=== PATIENT | male | born 1945 | race Caucasian/White ===

== ENCOUNTER 2017-06-18 08:44 | Emergency (ER) | payer MEDICARE ==
[2017-06-18 08:50] VITALS: BP 175/108
[2017-06-18] MEDS ORDERED: IPRATRPIUM/ALBUTEROL 0.5/2.5MG 3 ML NEBU. NEB ONE (09:15)
[2017-06-18] MEDS ORDERED: IV NORMAL SALINE 1,000ML 1,000 ML IV ONE (09:15)
--- NOTE | 2017-06-18 09:31 | RAD ---
EXAM: Chest one view. HISTORY: Cough, weakness. COMPARISON: None. FINDINGS: A frontal view of the chest is obtained. There are no confluent infiltrates. There is no pneumothorax or pleural effusion. The heart is not enlarged. There are atherosclerotic calcifications of the aorta. IMPRESSION: 1. No confluent infiltrates.
[2017-06-18 09:37] LABS: BASO % 0 % (0-3); EOS % 0 % (0-3); HEMATOCRIT 42.3 % (39.0-53.0); HEMOGLOBIN 14.7 g/dL (13.0-17.5); LYMPH # 0.6 x10^3/uL (1.0-4.8); LYMPH % 7 % (24-48); MEAN CORPUSCULAR HEMOGLOBIN 33 pg (25-35); MEAN CORPUSCULAR HGB CONC 35 g/dL (31-37); MEAN CORPUSCULAR VOLUME 96 fL (79-100); MONO # 0.6 x10^3/uL (0.0-1.1); MONO % 8 % (0-9); NEUT # 6.9 x10^3uL (1.8-7.7); NEUT % 84 % (31-73); PLATELET COUNT 175 x10^3/uL (140-400); RED CELL DISTRIBUTION WIDTH 13.1 % (11.5-14.5); WHITE BLOOD COUNT 8.2 x10^3/uL (4.0-11.0)
[2017-06-18 09:47] LABS: CALCIUM 8.9 mg/dL (8.5-10.1); GFR 73.7; MAGNESIUM 1.9 mg/dL (1.8-2.4); POTASSIUM 3.4 mmol/L (3.5-5.1)
[2017-06-18 09:55] LABS: INFLUENZA A PATIENT NEGATIVE (NEGATIVE); INFLUENZA B PATIENT NEGATIVE (NEGATIVE)
[2017-06-18] MEDS ORDERED: BUDE0.5A3 NEB (10:07)
[2017-06-18] MEDS ORDERED: ALBU8.5H8 INH (10:07)
[2017-06-18] MEDS ORDERED: PRED-220 PO (10:07)
--- NOTE | 2017-06-18 10:07 | PHYS DOC ---
Past History Past Medical History: Diabetes, HIV, Hypertension Past Surgical History: No Surgical History Additional Smoking Information: "When I was young" Alcohol Use: None Drug Use: None Adult General Chief Complaint Chief Complaint: FLU SYMPTOM HPI HPI Patient is a 71 year old F who presents with fever and cough over the past 2-3 days. He also describes nasal congestion and generalized body aches. He feels that his symptoms are mildly worse with activity and improved with relative rest. He has no other associated symptoms at this time. He has no other exacerbating or relieving factors. He does have a history of HIV and is currently on medications. His last viral count was 0 and has not had any AIDS associated illnesses. Review of Systems Review of Systems Constitutional: neg except history of present illness Eyes: Denies change in visual acuity, redness, or eye pain [] HENT: Negative except history of present illness Respiratory: Negative except history of present illness Cardiovascular: No additional information not addressed in HPI [] GI: Denies abdominal pain, nausea, vomiting, bloody stools or diarrhea [] : Denies dysuria or hematuria [] Musculoskeletal: Denies back pain or joint pain [] Integument: Denies rash or skin lesions [] Neurologic: Denies headache, focal weakness or sensory changes [] Endocrine: Denies polyuria or polydipsia [] All other systems were reviewed and found to be within normal limits, except as documented in this note. Family History Family History No pertinent family medical history was reported Current Medications Current Medications Current Medications Medications (Trade) Dose Ordered Sig/Edith Start Time Stop Time Status Last Admin Dose Admin Albuterol/ Ipratropium (Duoneb) 3 ml 1X ONCE 06/18/17 09:15 06/18/17 09:38 DC 06/18/17 09:34 3 ML Sodium Chloride 1,000 ml @ 1,000 mls/hr 1X ONCE 06/18/17 09:15 06/18/17 10:14 06/18/17 09:35 1,000 MLS/HR Allergies Allergies Allergies Coded Allergies Type Severity Reaction Last Updated Verified Penicillins Allergy Unknown 06/18/17 Yes Physical Exam Physical Exam Constitutional: Well developed, well nourished, no acute distress, non-toxic appearance. [] HENT: Normocephalic, atraumatic, mild nasal mucosa erythema Eyes: EOMI, conjunctiva normal, no discharge. [] Neck: Normal range of motion, no tenderness, supple, no stridor. [] Cardiovascular:Heart rate regular rhythm, Lungs & Thorax: Diminished breath sounds bilaterally with mild wheezing noted Abdomen: Bowel sounds normal, soft, no tenderness, no masses, no pulsatile masses. [] Skin: Warm, dry, no erythema, no rash. [] Extremities: No tenderness, no cyanosis, no clubbing, ROM intact, no edema. [] Neurologic: Alert and oriented X 3, normal motor function, normal sensory function, no focal deficits noted. [] Psychologic: Affect normal, judgement normal, mood normal. [] Current Patient Data Vital Signs Vital Signs Date Time Temp Pulse Resp B/P (MAP) Pulse Ox O2 Delivery O2 Flow Rate FiO2 06/18/17 08:50 99.0 102 20 93 Room Air Lab Results Laboratory Tests Test 06/18/17 09:10 06/18/17 09:15 06/18/17 09:17 White Blood Count 8.2 x10^3/uL (4.0-11.0) Red Blood Count 4.40 x10^6/uL (4.30-5.70) Hemoglobin 14.7 g/dL (13.0-17.5) Hematocrit 42.3 % (39.0-53.0) Mean Corpuscular Volume 96 fL (79-100) Mean Corpuscular Hemoglobin 33 pg (25-35) Mean Corpuscular Hemoglobin Concent 35 g/dL (31-37) Red Cell Distribution Width 13.1 % (11.5-14.5) Platelet Count 175 x10^3/uL (140-400) Neutrophils (%) (Auto) 84 % (31-73) H Lymphocytes (%) (Auto) 7 % (24-48) L Monocytes (%) (Auto) 8 % (0-9) Eosinophils (%) (Auto) 0 % (0-3) Basophils (%) (Auto) 0 % (0-3) Neutrophils # (Auto) 6.9 x10^3uL (1.8-7.7) Lymphocytes # (Auto) 0.6 x10^3/uL (1.0-4.8) L Monocytes # (Auto) 0.6 x10^3/uL (0.0-1.1) Eosinophils # (Auto) 0.0 x10^3/uL (0.0-0.7) Basophils # (Auto) 0.0 x10^3/uL (0.0-0.2) Sodium Level 136 mmol/L (136-145) Potassium Level 3.4 mmol/L (3.5-5.1) L Chloride Level 98 mmol/L (98-107) Carbon Dioxide Level 27 mmol/L (21-32) Anion Gap 11 (6-14) Blood Urea Nitrogen 12 mg/dL (8-26) Creatinine 1.0 mg/dL (0.7-1.3) Estimated GFR (Cockcroft-Gault) 73.7 Glucose Level 215 mg/dL (70-99) H Calcium Level 8.9 mg/dL (8.5-10.1) Magnesium Level 1.9 mg/dL (1.8-2.4) Influenza Type A (Rapid) Negative (NEGATIVE) Influenza Type B (Rapid) Negative (NEGATIVE) Glucose (Fingerstick) 197 mg/dL (70-99) H EKG EKG [] Radiology/Procedures Radiology/Procedures Chest x-ray - no acute disease noted Course & Med Decision Making Course & Med Decision Making Pertinent Labs and Imaging studies reviewed. (See chart for details) [] Dragon Disclaimer Dragon Disclaimer This electronic medical record was generated, in whole or in part, using a voice recognition dictation system. Departure Departure: Impression: Primary Impression: Viral bronchitis Disposition: 01 HOME, SELF-CARE Condition: STABLE Referrals: NON,STAFF (PCP) Patient Instructions: Acute Bronchitis Additional Instructions: Harvey was seen in the emergency department for cough and congestion. No emergency medical condition was found on history or physical exam. He did have normal chest x-ray and normal labs. His symptoms are most consistent with a viral bronchitis. He is given a prescription for oral steroids, inhaled steroids and albuterol. He was encouraged use nasal saline rinses regularly. He is advised follow-up with his primary care doctor in the next 3-5 days for further management. He was also advised to return to the emergency room if he develops new or worsening symptoms. Scripts Budesonide (PULMICORT) 0.5 Mg/2 Ml Ampul.neb 1 VIAL NEB BID for 14 Days, #60 VIAL 0 Refills Prov: OCTAVIO ALTAMIRANO MD 2/17/18 Prednisone (PREDNISONE) 10 Mg Tablet 10 MG PO DAILY for 3 Days, #3 TAB Prov: OCTAVIO ALTAMIRANO MD 06/18/17 Albuterol Sulfate (PROAIR HFA INHALER) 8.5 Gm Hfa.aer.ad 1 PUFF INH PRN Q6HRS Y for SHORTNESS OF BREATH for 7 Days, INHALER 0 Refills Prov: OCTAVIO ALTAMIRANO MD 06/18/17 OCTAVIO ALTAMIRANO MD Jun 18, 2017 10:07
[2017-06-18] MEDS ORDERED: methylPREDNISolone SOD SUCC PF 40 MG/ML VIAL. IV ONE (10:30)
== END 2017-06-18 10:34 | disposition home or self-care (01) ==
LOC: ER 08:44
DX: J20.8 Acute bronchitis due to other specified organisms (principal); E11.9 Type 2 diabetes mellitus without complications; I10 Essential (primary) hypertension; Z88.0 Allergy status to penicillin
CPT/HCPCS: 36415; 71045; 80048; 82947; 83735; 85025; 87804; 94640; 96361; 96374; 99285; J2920; J7620; J7030

== ENCOUNTER 2017-08-04 09:55 | Emergency (ER) | payer MEDICARE ==
[~2017-08-04] VITALS: Ht 175.3 cm; Wt 104.3 kg
[~2017-08-04 09:55] MED LIST: ALBU8.5H8 INH; BUDE0.5A3 NEB; PRED-220 PO
[2017-08-04] MEDS ORDERED: METH4TAB2 PO (10:29)
[2017-08-04] MEDS ORDERED: TRAM-48 PO (10:29)
--- NOTE | 2017-08-04 10:29 | PHYS DOC ---
Past History Past Medical History: Diabetes, HIV, Hypertension Past Surgical History: No Surgical History Alcohol Use: None Drug Use: None Adult General Chief Complaint Chief Complaint: BACK PAIN OR INJURY [facility] HPI Patient is a 71 year old male who presents with complaint of right lower back pain. Patient states that his symptoms have been present over the past several months, however patient states that his symptoms were exacerbated after falling off of his truck approximately one month ago. She states that the pain originates in his right lower back and radiates along the right lateral thigh towards the anterior knee and upper ramires. Patient states pain is sharp, tight, and worsens with movement. Patient has been taking ibuprofen 800 mg tablets at home with no relief in symptoms. Patient has not seen his primary doctor recently but states that he had x-rays of his back completed over the course of the last few months since initial onset of symptoms and states that he has not been diagnosed with any fractures. Currently rates pain as 5 out of 10. Patient denies any other associated symptoms including loss of bowel or bladder control , saddle last seizure, or foot drop. Review of Systems Review of Systems Constitutional: Denies fever or chills [] Eyes: Denies change in visual acuity, redness, or eye pain [] HENT: Denies nasal congestion or sore throat [] Respiratory: Denies cough or shortness of breath [] Cardiovascular: No additional information not addressed in HPI [] GI: Denies abdominal pain, nausea, vomiting, bloody stools or diarrhea [] : Denies dysuria or hematuria [] Musculoskeletal: Denies back pain or joint pain [] Integument: Denies rash or skin lesions [] Neurologic: Denies headache, focal weakness or sensory changes [] Endocrine: Denies polyuria or polydipsia [] All other systems were reviewed and found to be within normal limits, except as documented in this note. Allergies Allergies Allergies Coded Allergies Type Severity Reaction Last Updated Verified Penicillins Allergy Unknown 06/18/17 Yes Physical Exam Physical Exam Constitutional: Alert, afebrile, no acute distress. [] HENT: Normocephalic, atraumatic, bilateral external ears normal, oropharynx moist, no oral exudates, nose normal. [] Eyes: PERRLA, EOMI, conjunctiva normal, no discharge. [] Neck: Normal range of motion, no tenderness, supple, no stridor. [] Cardiovascular:Heart rate regular rhythm, no murmur [] Lungs & Thorax: Bilateral breath sounds clear to auscultation [] Abdomen: Bowel sounds normal, soft, no tenderness, no masses, no pulsatile masses. [] Skin: Warm, dry, no erythema, no rash. [] Back: No midline tenderness, right upper buttock tenderness near distribution of sciatic nerve, no flank ecchymosis. [] Extremities: Tightness and mild tenderness along right iliotibial band, no cyanosis, no clubbing, ROM intact, no edema. [] Neurologic: Alert and oriented X 3, normal motor function, normal sensory function, no focal deficits noted. [] Current Patient Data Vital Signs Vital Signs Date Time Temp Pulse Resp B/P (MAP) Pulse Ox O2 Delivery O2 Flow Rate FiO2 08/04/17 10:34 64 20 145/84 (104) 97 Room Air 08/04/17 10:20 97.9 EKG EKG Not performed[] Radiology/Procedures Radiology/Procedures Not performed[] Course & Med Decision Making Course & Med Decision Making Pertinent Labs and Imaging studies reviewed. (See chart for details) Patient's symptoms appear consistent with chronic muscle strain and muscle tightness. Patient prescribed Medrol and Ultram for treatment. Advised follow- up in one week with primary doctor for reevaluation and return to emergency department for any worsening symptoms. Patient voiced understanding and in agreement with treatment plan. Dragon Disclaimer Dragon Disclaimer This electronic medical record was generated, in whole or in part, using a voice recognition dictation system. Departure Departure: Impression: Primary Impression: Back pain Disposition: HOME, SELF-CARE Condition: STABLE Referrals: PCP,UNKNOWN (PCP) Patient Instructions: Back Pain, Adult Additional Instructions: Follow-up with your primary doctor in 1 week for reevaluation. Return to emergency department for any worsening symptoms. Scripts Tramadol Hcl (ULTRAM) 50 Mg Tablet 50 MG PO Q6HRS Y for PAIN, #30 TAB Prov: BRITNEY PALM MD 08/04/17 Methylprednisolone (MEDROL) 4 Mg Tab.ds.pk 1 PKG PO UD, #1 PKG Prov: BRITNEY PALM MD 08/04/17 Problem Qualifiers Primary Impression: Back pain Back pain location: low back pain Chronicity: chronic Back pain laterality : right Sciatica presence: unspecified whether sciatica present Qualified Codes: M54.5 - Low back pain; G89.29 - Other chronic pain BRITNEY PALM MD Aug 04, 2017 10:29
[2017-08-04 10:34] VITALS: BP 145/84
== END 2017-08-04 10:39 | disposition home or self-care (01) ==
LOC: ER 09:55
DX: M54.5 Low back pain (principal); G89.29 Other chronic pain; E11.9 Type 2 diabetes mellitus without complications; I10 Essential (primary) hypertension; Z21 Asymptomatic human immunodeficiency virus [HIV] infection status; Z88.0 Allergy status to penicillin
CPT/HCPCS: 99283

== ENCOUNTER → 2017-08-29 | Outpatient (CLI) | payer MEDICARE ==
[2017-08-04 10:34] VITALS: BP 145/84
[~2017-08-29] MED LIST changes: +METH4TAB2 PO; +TRAM-48 PO
--- NOTE | 2017-08-29 16:02 | RAD ---
Lumbar spine, 3 views, 08/29/2017: History: Low back pain, injury No fracture or dislocation is identified. The intervertebral disc spaces are well-maintained. There are mild scattered spurs in the lumbar spine. There is dense bony bridging anteriorly in the lower thoracic spine. There are moderate degenerative changes involving multiple facet joints bilaterally in the mid and lower lumbar spine. Aortic calcific plaquing is present. IMPRESSION: 1. Moderate multilevel degenerative change. 2. No acute bony abnormality is detected.
== END | disposition home or self-care (01) ==
LOC: DXRAD 11:45
PROVIDERS: ATTEND Family Medicine
DX: M54.5 Low back pain (principal)
CPT/HCPCS: 72100

== ENCOUNTER → 2018-09-13 | Outpatient (CLI) | payer MEDICARE, OTHER ==
[~2018-09-13] MED LIST changes: +ALBU2.5V8 INH; -ALBU8.5H8 INH
--- NOTE | 2018-09-13 16:18 | RAD ---
Left shoulder, 3 views, 09/13/2018: HISTORY: Shoulder pain after fall in shower The bony structures are demineralized. There is spurring along the glenoid rim. There are sclerotic changes with spurring at rotator cuff insertion sites on the greater tuberosity. Mild degenerative change is present at the AC joint. No acute fracture or dislocation is identified. IMPRESSION: 1. Mild to moderate degenerative change. 2. No acute bony abnormality is detected. Electronically signed by: Abe Mast MD (09/13/2018 4:15 PM) [facility]
== END | disposition home or self-care (01) ==
LOC: PMG 14:50
PROVIDERS: ATTEND Family Medicine
DX: M19.012 Primary osteoarthritis, left shoulder (principal); M75.82 Other shoulder lesions, left shoulder; M81.8 Other osteoporosis without current pathological fracture
CPT/HCPCS: 73030

== ENCOUNTER 2019-12-12 12:20 | Inpatient (IN) | payer MEDICARE, MEDICAID ==
[~2019-12-12] VITALS: Ht 175.3 cm; Wt 88.5 kg
--- NOTE | 2019-12-12 12:39 | RAD ---
CT HEAD WO CONTRAST History:Slurred speech Comparison: None. Technique: Noncontrast CT imaging was performed of the head. Exposure: One or more of the following individualized dose reduction techniques were utilized for this examination: 1. Automated exposure control 2. Adjustment of the mA and/or kV according to patient size 3. Use of iterative reconstruction technique. Findings: No acute extra-axial or parenchymal hemorrhage is identified. There is no significant intra-axial mass effect, midline shift, or extra-axial fluid collection. The rose-white differentiation of the major vascular territories is preserved. There is mild third and lateral ventriculomegaly although there is degree of supratentorial atrophy. There is cavum septum pellucidum. There is multifocal moderate to severe ill-defined low-density of the supratentorial parenchyma bilaterally. There is small old right basal ganglia lacunar infarct. 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 There is atherosclerotic calcification of the carotid siphons bilaterally. Visualized paranasal sinuses are aerated. There is some abnormal density in expanded left external auditory canal. No acute calvarial abnormality is identified. Impression: 1. There is no evidence of acute intracranial hemorrhage. 2. There is multifocal moderate to severe low-density of the supratentorial parenchyma probably due to chronic microvascular ischemic disease in a patient this age. 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 3. There is nonspecific density in expanded left external auditory canal, possibly cerumen. Critical results were discussed with CARLOS GUERRIER at 12/12/2019 12:36 PM. Electronically signed by: Van Iglesias MD (12/12/2019 12:36 PM) [id number]
[2019-12-12 12:57] LABS: BASO % 1 % (0-3); EOS # 0.2 x10^3/uL (0.0-0.7); EOS % 4 % (0-3); HEMATOCRIT 45.7 % (39.0-53.0); HEMOGLOBIN 15.5 g/dL (13.0-17.5); LYMPH # 1.1 x10^3/uL (1.0-4.8); LYMPH % 22 % (24-48); MEAN CORPUSCULAR HEMOGLOBIN 33 pg (25-35); MEAN CORPUSCULAR HGB CONC 34 g/dL (31-37); MEAN CORPUSCULAR VOLUME 98 fL (79-100); MONO # 0.4 x10^3/uL (0.0-1.1); MONO % 8 % (0-9); NEUT # 3.3 x10^3uL (1.8-7.7); NEUT % 66 % (31-73); PLATELET COUNT 193 x10^3/uL (140-400); RED BLOOD COUNT 4.66 x10^6/uL (4.30-5.70)
[2019-12-12] MEDS ORDERED: IOHEXOL 350 MG/ML 100 ML VIAL. IV ONE (13:15)
--- NOTE | 2019-12-12 13:17 | RAD ---
INDICATION: Reason: stroke / Spl. Instructions: / History: COMPARISON: June 2017 FINDINGS: Single view of chest obtained. Tortuous aortic contour with prominent cardiomediastinal silhouette. Degenerative changes of left greater than right shoulder. No definite new region of consolidation IMPRESSION: * No definite new region of focal airspace consolidation. Electronically signed by: Xander Coronel MD (12/12/2019 1:14 PM) [id number]
--- NOTE | 2019-12-12 14:08 | RAD ---
CTA head and neck History:Right-sided symptoms, slurred speech today Technique: After bolus of intravenous contrast, volumetric CT data acquisition was acquired of the head and neck. Multiplanar reconstruction images to include MIP and 3-D reconstruction images are submitted. Exposure: One or more of the following individualized dose reduction techniques were utilized for this examination: 1. Automated exposure control 2. Adjustment of the mA and/or kV according to patient size 3. Use of iterative reconstruction technique. Comparison: Noncontrast head CT performed separately earlier this same day Any determination of stenosis is based on NASCET criteria. CTA head: Findings: Exam is very limited due to very poor contrast opacification of the arteries as well as motion. Both vertebral arteries constitute a basilar artery, dominant right vertebral artery. PICAs, AICAs, and superior cerebellar arteries are not well visualized on this limited exam. There is some variable visualization of segments of the posterior cerebral arteries bilaterally although incompletely seen on both sides. There is visualization of segments of the anterior and middle cerebral arteries. There is aplastic left A1 segment, patent communicating artery. No obvious large vessel occlusive filling defect is identified of the more central middle cerebral arteries. There may be infundibulum near origin of the A2 segment. There is some calcified plaque of the carotid siphons bilaterally. There is small patent left posterior communicating artery. Impression: 1. Exam is very limited as stated, incomplete visualization of the intracranial. No obvious occlusive filling defect is identified of the more central middle cerebral arteries on either side. Posterior cerebral arteries are not fully seen for accurate evaluation. Neck CTA: Findings: Exam is limited due to motion and also suboptimal contrast opacification of the cervical arterial vasculature. There are probable normal anatomic origins of the great vessels although again proximal vertebral arteries not well visualized. There is some calcified plaque of the distal common carotid arteries and carotid bulbs without significant stenosis identified on this limited exam. Vertebral arteries are not adequately visualized to accurately evaluate. There is multilevel cervical degenerative disc disease greatest at C5-6 and to a somewhat lesser degree at C4-5 and C6-7. Disc osteophyte complex at C5-6 results in likely central canal stenosis on the order of 6 to 7 mm. There is multilevel facet and uncovertebral degenerative change. There is severe neural foramina compromise bilaterally at C3-4 and C5-6 and on the right at C4-C5, to a somewhat lesser degree bilaterally at C6-7. There is some nonspecific density in the right trachea in the superior chest Impression: 1. Exam is very limited as stated, no obvious significant stenosis of the carotid arteries. Vertebral arteries are not accurately evaluated on this exam as poorly visualized, dominant right vertebral artery. 2. There is multilevel cervical degenerative disc disease and spondylosis greatest at C5-6 at which there is spinal stenosis. There is multilevel cervical neural foramina compromise due to facet and uncovertebral degenerative change. 3. There is focus of density in the right tracheal in the superior chest, although may be due to more confluent larger focus of mucus. Electronically signed by: Van Iglesias MD (12/12/2019 2:05 PM) [id number]
[2019-12-12 14:47] LABS: BACTERIA,URINE 0 /HPF (0-FEW); BILIRUBIN,URINE NEG (NEG); CLARITY,URINE CLEAR; COLOR,URINE YELLOW; GLUCOSE,URINE >=1000 mg/dL (NEG); NITRITE,URINE NEG (NEG); RBC,URINE 0 /HPF (0-2); SQUAMOUS EPITHELIAL CELL,UR OCC /LPF; UROBILINOGEN,URINE 0.2 mg/dL (0.2 mg/dL); WBC,URINE OCC /HPF (0-4)
[2019-12-12 14:50] LABS: CALCIUM 8.3 mg/dL (8.5-10.1); CREATININE 1.1 mg/dL (0.7-1.3); GFR 65.4; POTASSIUM 3.7 mmol/L (3.5-5.1)
[2019-12-12 14:56] LABS: ALBUMIN 3.1 g/dL (3.4-5.0); ALBUMIN/GLOBULIN RATIO 0.8 (1.0-1.7); TOTAL BILIRUBIN 0.2 mg/dL (0.2-1.0); TOTAL PROTEIN 6.9 g/dL (6.4-8.2)
--- NOTE | 2019-12-12 15:16 | EKG ---
[address] [address] Test Date: 2019-12-12 Test Time: 12:38:48 Pat Name: DILLAN MAGAÑA Department: Room: Gender: M Making Department Preparer: GIGI : 1945 Requested By: CARLOS GUERRIER Order Number: [id number] Reading MD: Measurements Intervals [place] Rate: 56 P: 34 CO: 144 QRS: -45 QRSD: 98 T: 69 QT: 424 QTc: 412 Interpretive Statements SINUS RHYTHM ABNORMAL LEFT AXIS DEVIATION QRS(T) CONTOUR ABNORMALITY CONSIDER ANTEROSEPTAL MYOCARDIAL DAMAGE T ABNORMALITY IN HIGH LATERAL LEADS ABNORMAL ECG RI6.02 Compared to ECG 12/12/2019 12:36:59 Left-axis deviation now present T-wave abnormality now present
[2019-12-12 17:38] VITALS: BP 144/96
[2019-12-12] MEDS ORDERED: AMLO10TA8 PO (17:56)
[2019-12-12] MEDS ORDERED: LISI40TA PO (17:56)
[2019-12-12 18:00] VITALS: BP 157/82
[2019-12-12] MEDS ORDERED: ONDANSETRON PF 4 MG/2 ML VIAL. IVP PRN (18:45)
[2019-12-12] MEDS ORDERED: DEXTROSE 50% 25 GM / 50ML DISP.SYRIN. IV PRN (18:45)
[2019-12-12 19:00] VITALS: BP 158/84
[2019-12-12] MEDS ORDERED: IBUP800T19 PO (19:55)
[2019-12-12] MEDS ORDERED: BICT1TAB PO (19:55)
[2019-12-12] MEDS ORDERED: DIPH25CA58 PO (19:55)
[2019-12-12] MEDS: ASPIRIN 325 MG TABLET PO SCH (20:28)
[2019-12-12] MEDS: ENOXAPARIN 40 MG/0.4 ML SYRINGE. SQ SCH (20:28)
[2019-12-12 22:10] VITALS: BP 167/73
[2019-12-13 00:23] VITALS: BP 154/91
[2019-12-13 06:13] VITALS: BP 154/80
[2019-12-13 06:23] LABS: BASO % 1 % (0-3); EOS # 0.2 x10^3/uL (0.0-0.7); EOS % 4 % (0-3); HEMATOCRIT 45.6 % (39.0-53.0); HEMOGLOBIN 15.7 g/dL (13.0-17.5); LYMPH # 1.3 x10^3/uL (1.0-4.8); LYMPH % 23 % (24-48); MEAN CORPUSCULAR HEMOGLOBIN 34 pg (25-35); MEAN CORPUSCULAR HGB CONC 34 g/dL (31-37); MEAN CORPUSCULAR VOLUME 97 fL (79-100); MONO # 0.4 x10^3/uL (0.0-1.1); MONO % 7 % (0-9); NEUT # 3.7 x10^3uL (1.8-7.7); NEUT % 66 % (31-73); PLATELET COUNT 187 x10^3/uL (140-400); RED BLOOD COUNT 4.69 x10^6/uL (4.30-5.70); RED CELL DISTRIBUTION WIDTH 13.3 % (11.5-14.5); WHITE BLOOD COUNT 5.6 x10^3/uL (4.0-11.0)
[2019-12-13 06:36] LABS: CALCIUM 8.6 mg/dL (8.5-10.1); CREATININE 0.9 mg/dL (0.7-1.3); GFR 82.5; POTASSIUM 3.5 mmol/L (3.5-5.1)
[2019-12-13] MEDS: ASPIRIN 325 MG TABLET PO SCH (08:09)
--- NOTE | 2019-12-13 08:09 | PHYS DOC ---
Past History Past Medical History: Diabetes, HIV, Hypertension Past Surgical History: No Surgical History Alcohol Use: None Drug Use: None Adult General Chief Complaint Chief Complaint: NEURO SYMPTOMS/DEFICITS HPI HPI Patient is a 74 year old male who presents with difficulty walking, speech difficulty that started between 9 and 930 this morning. According to patient he went to have breakfast this morning and was normal at that time. His states that he sent her text message at 930 that stated that he could not stand. Patient has been having a difficult time walking for a while but typically is able to walk with minimal difficulty. He was not even able to stand up to go the bathroom at some point this morning. They also noticed that his speech was confused and slurred. He has never had anything like this previously. He has hypertension and diabetes. He does not take his metformin because it makes him feel sick. Review of Systems Review of Systems General: Denies fever, chills, sweats, fatigue Eyes: Denies drainage, blurred vision, eye redness HENT: Denies rhinorrhea, sore throat, earache Respiratory: Denies cough, shortness of breath, wheezing Cardiac: Denies edema, palpitations, chest pain GI: Denies abdominal pain, Nausea, vomiting MSK: Denies back pain, neck pain Skin: Denies rash, jaundice Neuro: Reports difficulty walking, slurred speech, weakness Psychiatric: Denies SI/HI Current Medications Current Medications Current Medications Medications (Trade) Dose Ordered Sig/Edith Start Time Stop Time Status Last Admin Dose Admin Iohexol (Omnipaque 350 Mg/ml) 100 ml 1X ONCE 12/12/19 13:15 12/12/19 13:16 DC 12/12/19 13:10 100 ML Allergies Allergies Allergies Coded Allergies Type Severity Reaction Last Updated Verified Penicillins Allergy Unknown 12/12/19 Yes Physical Exam Physical Exam General: Awake, alert, NAD. Well Nourished, well hydrated. Cooperative HEENT: Atraumatic, EOMI, PERRL, airway patent, moist oral mucosa Neck: Supple, trachea midline Respiratory: CTA bilaterally, normal effort, no wheezing/crackles CV: RRR, no murmur, cap refill <2 GI: Soft, nondistended, nontender, no masses MSK: No obvious deformities Skin: Warm, dry, intact Neuro: A&O x3, slurred speech, 5/5 strength in LUE/LLE distally and proximally, 4/5 strength in RUE/RLE, R arm and R leg drift, minimal R sided facial droop, uvula deviation, other CN 2-12 intact, cerebellar abnormal, unable to walk Psych: Normal affect, normal mood, not suicidal or homicidal Current Patient Data Vital Signs Vital Signs Date Time Temp Pulse Resp B/P (MAP) Pulse Ox O2 Delivery O2 Flow Rate FiO2 12/13/19 06:13 97.8 52 17 154/80 (104) 97 Room Air Lab Results Laboratory Tests Test 12/12/19 12:37 12/12/19 12:39 12/12/19 14:25 12/12/19 21:06 Glucose (Fingerstick) 339 mg/dL (70-99) H 185 mg/dL (70-99) H White Blood Count 5.0 x10^3/uL (4.0-11.0) Red Blood Count 4.66 x10^6/uL (4.30-5.70) Hemoglobin 15.5 g/dL (13.0-17.5) Hematocrit 45.7 % (39.0-53.0) Mean Corpuscular Volume 98 fL (79-100) Mean Corpuscular Hemoglobin 33 pg (25-35) Mean Corpuscular Hemoglobin Concent 34 g/dL (31-37) Red Cell Distribution Width 13.0 % (11.5-14.5) Platelet Count 193 x10^3/uL (140-400) Neutrophils (%) (Auto) 66 % (31-73) Lymphocytes (%) (Auto) 22 % (24-48) L Monocytes (%) (Auto) 8 % (0-9) Eosinophils (%) (Auto) 4 % (0-3) H Basophils (%) (Auto) 1 % (0-3) Neutrophils # (Auto) 3.3 x10^3uL (1.8-7.7) Lymphocytes # (Auto) 1.1 x10^3/uL (1.0-4.8) Monocytes # (Auto) 0.4 x10^3/uL (0.0-1.1) Eosinophils # (Auto) 0.2 x10^3/uL (0.0-0.7) Basophils # (Auto) 0.0 x10^3/uL (0.0-0.2) Sodium Level 137 mmol/L (136-145) Potassium Level 3.7 mmol/L (3.5-5.1) Chloride Level 101 mmol/L (98-107) Carbon Dioxide Level 25 mmol/L (21-32) Anion Gap 11 (6-14) Blood Urea Nitrogen 12 mg/dL (8-26) Creatinine 1.1 mg/dL (0.7-1.3) Estimated GFR (Cockcroft-Gault) 65.4 BUN/Creatinine Ratio 11 (6-20) Glucose Level 356 mg/dL (70-99) H Calcium Level 8.3 mg/dL (8.5-10.1) L Magnesium Level 1.9 mg/dL (1.8-2.4) Total Bilirubin 0.2 mg/dL (0.2-1.0) Aspartate Amino Transferase (AST) 21 U/L (15-37) Alanine Aminotransferase (ALT) 28 U/L (16-63) Alkaline Phosphatase 94 U/L (46-116) Troponin I Quantitative 0.055 ng/mL (0-0.055) Total Protein 6.9 g/dL (6.4-8.2) Albumin 3.1 g/dL (3.4-5.0) L Albumin/Globulin Ratio 0.8 (1.0-1.7) L Urine Collection Type Unknown Urine Color Yellow Urine Clarity Clear Urine pH 5.5 Urine Specific Galva 1.015 Urine Protein >100 mg/dl (NEG-TRACE) Urine Glucose (UA) >=1000 mg/dL (NEG) Urine Ketones (Stick) Neg mg/dL (NEG) Urine Blood Trace (NEG) Urine Nitrite Neg (NEG) Urine Bilirubin Neg (NEG) Urine Urobilinogen Dipstick 0.2 mg/dL (0.2 mg/dL) Urine Leukocyte Esterase Neg (NEG) Urine RBC 0 /HPF (0-2) Urine WBC Occ /HPF (0-4) Urine Squamous Epithelial Cells Occ /LPF Urine Bacteria 0 /HPF (0-FEW) Test 12/13/19 05:35 12/13/19 07:54 White Blood Count 5.6 x10^3/uL (4.0-11.0) Red Blood Count 4.69 x10^6/uL (4.30-5.70) Hemoglobin 15.7 g/dL (13.0-17.5) Hematocrit 45.6 % (39.0-53.0) Mean Corpuscular Volume 97 fL (79-100) Mean Corpuscular Hemoglobin 34 pg (25-35) Mean Corpuscular Hemoglobin Concent 34 g/dL (31-37) Red Cell Distribution Width 13.3 % (11.5-14.5) Platelet Count 187 x10^3/uL (140-400) Neutrophils (%) (Auto) 66 % (31-73) Lymphocytes (%) (Auto) 23 % (24-48) L Monocytes (%) (Auto) 7 % (0-9) Eosinophils (%) (Auto) 4 % (0-3) H Basophils (%) (Auto) 1 % (0-3) Neutrophils # (Auto) 3.7 x10^3uL (1.8-7.7) Lymphocytes # (Auto) 1.3 x10^3/uL (1.0-4.8) Monocytes # (Auto) 0.4 x10^3/uL (0.0-1.1) Eosinophils # (Auto) 0.2 x10^3/uL (0.0-0.7) Basophils # (Auto) 0.0 x10^3/uL (0.0-0.2) Sodium Level 139 mmol/L (136-145) Potassium Level 3.5 mmol/L (3.5-5.1) Chloride Level 104 mmol/L (98-107) Carbon Dioxide Level 29 mmol/L (21-32) Anion Gap 6 (6-14) Blood Urea Nitrogen 9 mg/dL (8-26) Creatinine 0.9 mg/dL (0.7-1.3) Estimated GFR (Cockcroft-Gault) 82.5 Glucose Level 220 mg/dL (70-99) H Calcium Level 8.6 mg/dL (8.5-10.1) Glucose (Fingerstick) 226 mg/dL (70-99) H EKG EKG [] Radiology/Procedures Radiology/Procedures [] Course & Med Decision Making Course & Med Decision Making Pertinent Labs and Imaging studies reviewed. (See chart for details) Patient is a 74 year-old male who presents to the Emergency Room with neurologic complaints that are concerning for an acute stroke. Stroke protocol was set off upon arrival to the Emergency Room and patient was taken for a CT head. At time of arrival, patient is protecting their airway and does not need intubation at this time. CT head shows chronic disease with no subacute infarct or hemorrhage. At this time, patient is a candidate for tPA but had minimal time to make a decision as he was right on the cusp of the window. I had a very long conversation with his son, , and the patient. The did want TPA given, however after a long discussion with the patient he does not want TPA. Given that at this time patient is no longer in the window this appears to be appropriate. Further work up was ordered to help risk stratify patient and to evaluate for other causes of neurologic deficits including CBC, BMP, troponin, EKG, CXR, magnesium. At this time, CT angio head/neck is indicated and patient is be a potential candidate for IR clot retreival. CT angios does not show a large vessel occlusion. Patient will be admitted for neurology evaluation and possible rehab. Plan of care was discussed with patient/family and all questions were answered. Dragon Disclaimer Dragon Disclaimer This electronic medical record was generated, in whole or in part, using a voice recognition dictation system. Critical Care Note Comments Critical Care: Authorized and Performed by: Carlos Goetz MD Total critical care time: approximately 45 minutes Due to a high probability of clinically significant, life threatening deterioration, the patient required my highest level of preparedness to intervene emergently and I personally spent this critical care time directly and personally managing the patient. This critical care time included obtaining a history; examining the patient; pulse oximetry; ventilator management if necessary; ordering and review of studies; arranging urgent treatment with development of a management plan; evaluation of patient's response to treatment; frequent reassessment; discussion with patient/family; and, discussions with other providers. This critical care time was performed to assess and manage the high probability of imminent, life-threatening deterioration that could result in multi-organ failure. It was exclusive of separately billable procedures and treating other patients and teaching time. Please see MDM section and the rest of the note for further information on patient assessment and treatment. Departure Departure: Impression: Primary Impression: Stroke Disposition: ADMITTED INPATIENT Condition: STABLE Referrals: RACHEAL SHERMAN MD (PCP) Justification of Admission: Justification of Admission: Justification of Admission Dx: Yes Stroke - Ischemic: Stroke-Ischemic CARLOS GOETZ MD Dec 13, 2019 08:09
[2019-12-13] MEDS: INSULIN LISPRO 300 UNITS/3 ML VIAL. SQ SCH ×4 (08:10→17:35)
--- NOTE | 2019-12-13 10:05 | CONS ---
DATE OF CONSULTATION: 12/12/2019 NEUROLOGY CONSULTATION REFERRING PHYSICIAN: Dr. Karl Curran. REASON FOR CONSULTATION: Rule out stroke versus TIA. HISTORY OF PRESENT ILLNESS: This is a 74-year-old right-handed male who was admitted through Emergency Room after he presented with a chief complaint of sudden onset of slurred speech, intermittent confusion, and right-sided weakness. According to the patient, he woke up this morning at around 8:00 a.m., but his symptoms started around 9:00 a.m. with difficulty walking, weakness of the right upper and lower extremity and slurred speech. He denies any headaches, visual disturbances, nausea, vomiting, chest pain, shortness of breath, palpitation or dizziness. In the Emergency Room, his blood pressure was 154/80. 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 The patient with weaning dose of tPA, but the patient decided not to have it. PAST MEDICAL HISTORY: Significant for old stroke, hypertension, diabetes mellitus, positive HIV. SOCIAL HISTORY: The patient is . He denies smoking, alcohol drinking, or illicit drug use. FAMILY HISTORY: Noncontributory. CURRENT MEDICATIONS: Include insulin, aspirin 325 mg daily, and Zofran. The patient refused to take metformin for diabetes mellitus because it makes him sick. ALLERGIES: PENICILLIN. PHYSICAL EXAMINATION: GENERAL: Well-developed, well-nourished male, not in acute distress. He weighs 85.7 kilos. VITAL SIGNS: Blood pressure 157/82, respiratory rate 18, pulse is 51, oxygen saturation is 95% on room air, and temperature 97.4. HEENT: Normocephalic and atraumatic, otherwise unremarkable. NECK: Supple. Negative for carotid bruit, lymphadenopathy or thyromegaly. LUNGS: Clear to A and P. CARDIOVASCULAR: Regular rate and rhythm, normal S1 and S2. There is no S3, S4 or murmurs. ABDOMEN: Soft. Bowel sounds positive. EXTREMITIES: Negative for cyanosis, clubbing or edema. NEUROLOGICAL: MENTAL STATUS: The patient is alert and oriented to himself. Speech is slurred. There is no language dysfunction. Memory, judgment, and abstracting thinking are fair. The patient denies hallucination or delusion. CRANIAL NERVES: Visual fritz are full. The pupils are reactive to light and accommodation. Extraocular movements are intact. There is no nystagmus. There is right facial sensory deficit, but no asymmetry. Hearing is intact bilaterally. The palate is elevated symmetrically. Sternocleidomastoid muscles are powerful bilaterally. The patient shrugs his shoulders symmetrically, but protrudes his tongue without fasciculation or atrophy. MOTOR EXAMINATION: No focal muscle bulk was seen. The tone is normal. The strength is 4/5 with pronation of the right upper extremity and the strength in the left lower extremity was 4/5 compared to those on the left side. SENSORY EXAMINATION: Revealed diminished pinprick and light touch senses over the right upper and lower extremities. Deep tendon reflexes were symmetric and hypoactive with positive Babinski. GAIT: Not tested. DIAGNOSTIC DATA: A head CT angio revealed very limited exam, but no obvious occlusion defect. CT angio of the neck revealed very limited exam, but no obvious significant stenosis of the carotid arteries. There is degenerative disk disease at multiple levels with spinal stenosis, more prominent at C5-C6. LABORATORY DATA: CBC revealed white blood cells of 5000, hemoglobin 15.5, hematocrit 45.7, platelet count 193,000. Chemistry: Sodium of 137, potassium 3.7, chloride 101, CO2 of 25, BUN 12, creatinine 1.1, glucose 356, calcium 8.3. Urinalysis negative for urinary tract infections. IMPRESSION: 1. Acute stroke with expressive aphasia, likely due to left hemispheric infarcts, probably due to hypertension and diabetes mellitus. 2. Multiple medical problems include hypertension, diabetes mellitus, which is poorly controlled, probably because of noncompliance with medication. 3. History of positive human immunodeficiency virus. RECOMMENDATION: 1. Complete workup for stroke. The patient may need an echocardiogram. 2. Continue with aspirin 325 mg p.o. daily. 3. Stroke rehabilitation, PT/OT/speech therapy/sleep evaluation and therapy. 4. Prophylactic Lovenox. M Maddie LEWIS MD DR: HERMAN/ferdinand JOB#: [id number] / [id number]
--- NOTE | 2019-12-13 10:29 | PN ---
DATE: 12/13/2019 SUBJECTIVE: The patient denies any new medical or neurological complaints. He continues to have right hemiparesis and slurred speech. OBJECTIVE: GENERAL: Well-developed, well-nourished male, not in acute distress. VITAL SIGNS: Blood pressure 154/80, respiratory rate is 17, pulse is 52, oxygen saturation is 97% on room air, and temperature 97.8. HEENT: Normocephalic, atraumatic, otherwise unremarkable. NECK: Supple. Negative for carotid bruit, lymphadenopathy or thyromegaly. LUNGS: Clear to A and P. CARDIOVASCULAR: Regular rate and rhythm, normal S1, S2. ABDOMEN: Soft. Bowel sounds positive. EXTREMITIES: Negative for cyanosis, clubbing or edema. NEUROLOGICAL EXAMINATION: Mental status: The patient is alert and oriented x 2. The speech is dysarthric. The patient has somewhat difficulty finding words. Memory, judgment, and abstracting thinking are fair. The patient denies hallucination or delusion. Cranial nerves are intact. Motor examination revealed right hemiparesis of moderate severity, more prominent on the right upper extremity with pronation. Sensory examination revealed normal pinprick, light touch, vibratory and position senses. Deep tendon reflexes were symmetric and hypoactive with absent Achilles responses. Babinski is positive on the right side. Gait not tested. LABORATORY DATA: CBC revealed white blood cells of 5.6 thousand, hemoglobin 15.7, hematocrit 45.6, platelet count 187,000. Chemistry revealed sodium of 139, potassium 3.5, chloride 104, CO2 of 29, BUN 9, creatinine 0.9, glucose 220, calcium 8.6. IMPRESSION: 1. Status post acute stroke, presented with right hemiparesis and dysarthria with some improvement overnight. 2. Multiple medical problems include hypertension, diabetes mellitus and positive human immunodeficiency virus. RECOMMENDATIONS: 1. Continue with current management initiated by Dr. Curran. 2. Continue with aspirin 325 mg p.o. daily. 3. Stroke rehabilitation includes PT/OT and speech therapy. M Maddie LEWIS MD DR: HERMAN/ferdinand JOB#: [id number] / [id number]
[2019-12-13 11:00] VITALS: BP 141/102
[2019-12-13 15:00] VITALS: BP 165/91
--- NOTE | 2019-12-13 16:22 | PN ---
DATE: 12/13/2019 SUBJECTIVE: The patient is resting, slightly propped up in bed, in no apparent distress. He obviously continued to have difficulty walking, weakness of the right side and unsteady on his feet. He was seen by the speech therapist and he is now on dysphagia to thickened liquids. He was seen by the physical and occupational therapist who [facility] and our social organization professor is working to see if he can be admitted to [facility]. PHYSICAL EXAMINATION: GENERAL: When I saw him this afternoon, he looked well and was clearly in no apparent distress. No pallor, jaundice, cyanosis, or thyromegaly. No jugular venous distension. No limb edema. VITAL SIGNS: His heart rate was 52, blood pressure was 154/80, temperature was 97.8, respiratory rate was 17 and oxygen saturation was 97%. The rest of exam showed that the patient continued to have weakness in the right upper and right lower extremity and requires 2-person assist. His intake and output were incompletely recorded. LABORATORY DATA: His lab work this morning showed serum sodium of 139, potassium 3.5, chloride 104, bicarbonate 29, anion gap of 9, BUN 9, creatinine 0.9, estimated GFR was 82 mL per minute. His glucose 220, calcium was 8.6. His fasting lipid profile showed triglycerides 286, total cholesterol was 186, LDL was 194, VLDL was 57 and HDL cholesterol was 35 and the ratio was 8. ASSESSMENT: 1. In summary, this is a 74-year-old male patient who was admitted with acute stroke, presented with right hemiparesis and dysarthria. 2. Multiple medical problems including hypertension, diabetes mellitus, positive for human immunodeficiency virus. He also has hyperlipidemia. PLAN: To continue with aspirin, continue with all his other medications and continue with DVT prophylaxis. I will also start him on Lipitor for his hyperlipidemia and has poorly controlled type 2 diabetes mellitus, for which he was not taking any medication. I will start him on Lantus 10 units at bedtime and continue with insulin sliding scale for now. RAFAEL SMALLWOOD MD DR: MU/ferdinand JOB#: [id number] / [id number]
--- NOTE | 2019-12-13 16:27 | HP ---
ADMIT DATE: 12/12/2019 HISTORY OF PRESENT ILLNESS: The patient is a 74-year-old male patient who was brought to the Emergency Room with difficulty walking, speech difficulty that started between 9 and 9:30 on the day of admission. According to the patient, he went to have breakfast this morning and was normal. At that time, his said that he sent her a text message at 9:30 stating that he could not stand. The patient has been having a difficult time walking for a while, but typically is able to walk with minimal difficulty. He was not even able to stand up to go to the bathroom at some point in the morning of admission. She also noted that his speech was confused and slurred. He has never had anything like this previously. He has hypertension and diabetes. He does not take his metformin because it makes him feel sick. He was extensively investigated in the Emergency Room and clinically apparently it was found that his strength in the right upper and lower extremity was only 4/5 with right arm and right leg drift, minimal right sided facial droop, uvula deviation and has also evidence of a cerebellar abnormality. He was extensively investigated, had lab work done, which was unremarkable and had had a CT scan of the head, which basically showed that there is no evidence of acute intracranial hemorrhage. There is multifocal moderate to severe low density of the supratentorial parenchyma, probably due to chronic microvascular ischemic disease in a patient this age. 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 There is no specific density and extended left external auditory canal, possibly cerumen. The patient was admitted for further evaluation and treatment and to consult the neurologist. Apparently, the patient was out of the window for TPA. In fact, his wanted the TPA given; however, after a long discussion with the patient, he does not want TPA and by the time he was out and no longer in the window for treatment and in consultation with Dr. Cramer, the patient was admitted and we will obviously arrange for CT angio of the head and neck. PAST MEDICAL HISTORY: Significant for hypertension, hyperlipidemia and benign prostatic hypertrophy. 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 He is also known to have HIV for the last 15 years. PAST SURGICAL HISTORY: Unremarkable. ALLERGIES: He is allergic to PENICILLIN. MEDICATIONS: He is currently on following medications: Diphenhydramine 50 mg at bedtime, Biktarvy 50/200/25 mg 1 tablet once a day, amlodipine 10 mg once a day, lisinopril 40 mg once a day, ibuprofen 800 mg at bedtime. FAMILY HISTORY: He has 2 sisters, older and still alive. One sister of myocardial infarction. Two brothers, one of Agent Gem and the other one of cerebral aneurysm rupture. His father at the age of 70 because of myocardial infarction and mother in her 50s because of myocardial infarction. SOCIAL HISTORY: He is , has 2 sons and 1 daughter. He does not smoke, drink alcohol or use any drugs. 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 REVIEW OF SYSTEMS: The patient denied any blurring of vision, cataract, glaucoma or macular degeneration. Did complain of deafness in his right ear, but denied any earache or tinnitus. Denied any nosebleeds, stuffy nose or postnasal drip. Denied any sore throat, sore tongue, toothache, hoarseness of voice or difficulty swallowing. Denied any nausea, vomiting, diarrhea or constipation. Denied any hematemesis, melena or hematochezia. Denied any dysuria or frequency, but did complain of nocturia. Denied any chest pain, shortness of breath, orthopnea, paroxysmal nocturnal dyspnea. Denied any cough, phlegm or hemoptysis. Denied any chills, rigors or fever. Denied any dizziness, lightheadedness or vertigo. PHYSICAL EXAMINATION: GENERAL: On arrival to the Emergency Room, he looked well and was clearly in no apparent respiratory distress. There was no pallor, jaundice, cyanosis or thyromegaly. No jugular venous distention. No lower limb edema. VITAL SIGNS: His heart rate was 56, blood pressure was 158/91, temperature 97.6, respiratory rate was 17 and oxygen saturation was 98%. HEAD, EYES, EARS, NOSE AND THROAT: Showed normocephalic, atraumatic. NECK: Supple. HEART: Showed normal first and second heart sounds. No gallop or murmur. CHEST: Clear to auscultation. No crepitation or rhonchi. ABDOMEN: Distended, soft, nontender. NEUROLOGIC: He was apparently awake, alert, responding appropriately. All his cranial nerves are intact. He has definitely weakness of both right upper and right lower extremity. He has also minimal right-sided facial droop and evidence of cerebellar abnormality. He was unable to walk. LABORATORY DATA: While in the Emergency Room, he had lab work done, which showed a white cell count 5000, hemoglobin 15.5, hematocrit 45, MCV 98 and platelet count of 193,000. His chemistry on admission showed serum sodium of 137, potassium 3.7, chloride 101, bicarbonate 25, anion gap of 11, BUN 12, creatinine 1.1. Estimated GFR was 65 mL per minute, his glucose was 356, calcium was 8.3. Total bilirubin, AST, ALT, alkaline phosphatase were normal. Total protein was 6.9, albumin was 3.1. His urinalysis showed the urine was yellow, clear with a pH of 5.5, specific gravity of 1.015. There was small amount of protein, large amount of glucose. The urine was negative for ketones, trace amount of blood, negative for nitrite, negative for leukocyte esterase, and no wbc's, no rbc's, no bacteria. CT scan of the head showed there is no evidence of acute intracranial hemorrhage. There is multifocal moderate to severe low density of the supratentorial parenchyma, probably due to chronic microvascular ischemic disease in a patient of this age. 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 There is nonspecific density in the expanded left external auditory canal, possibly cerumen. His chest x-ray was unremarkable and showed no definite new region of focal airspace consolidation and the patient has had also CT angio of the head and neck, which basically showed the exam is very limited as stated. No obvious significant stenosis of the carotid arteries, vertebral arteries are not adequately evaluated on this exam; has poorly visualized dominant right vertebral artery. There is multilevel cervical degenerative disk disease and spondylosis, greatest at C5-C6, at which there is spinal stenosis. There is multilevel cervical neural foramina compromise due to facet and uncovertebral degenerative changes. There is focus of density in the right trachea in the superior chest, although may be due to more confluent larger focus of mucus. ASSESSMENT AND PLAN: The patient was admitted with right sided weakness and possible cerebellar stroke syndrome. We did consult the speech therapy, physical and occupational therapy as well as the neurologist who recommended to start him on aspirin 325 mg and start the process of rehabilitation. We did consult the PT, OT and speech therapy and also to start him on Lovenox for DVT prophylaxis. RAFAEL SMALLWOOD MD DR: Sybil JOB#: [id number] / [id number]
[2019-12-13] MEDS ORDERED: ACETAMINOPHEN 325 MG TABLET PO ONE (17:00)
[2019-12-13 19:26] VITALS: BP 195/94
[2019-12-13] MEDS: diphenhydrAMINE HCL 25 MG CAPSULE PO SCH (20:48)
[2019-12-13] MEDS: ATORVASTATIN CALCIUM 20 MG TABLET PO SCH (20:48)
[2019-12-13] MEDS: [UNRECOGNIZED DRUG - OTHER] PO SCH (20:49)
[2019-12-13] MEDS: ACETAMINOPHEN 325 MG TABLET PO PRN (20:49)
[2019-12-13] MEDS: ENOXAPARIN 40 MG/0.4 ML SYRINGE. SQ SCH (20:49)
[2019-12-13] MEDS ORDERED: INSULIN GLARGINE SYRINGE. SQ SCH (21:00)
[2019-12-13 23:04] VITALS: BP 169/91
[2019-12-14 06:14] VITALS: BP 173/85
[2019-12-14 06:28] LABS: CALCIUM 8.7 mg/dL (8.5-10.1); POTASSIUM 3.3 mmol/L (3.5-5.1)
[2019-12-14] MEDS ORDERED: POTASSIUM CHLORIDE 20 MEQ TABLET.ER. PO ONE (08:30)
[2019-12-14] MEDS: ASPIRIN 325 MG TABLET PO SCH (09:02)
[2019-12-14] MEDS: ACETAMINOPHEN 325 MG TABLET PO PRN ×2 (09:02→20:31)
[2019-12-14] MEDS: LISINOPRIL 20 MG TABLET PO SCH (09:03)
[2019-12-14] MEDS: amLODIPine BESYLATE 10 MG TABLET PO SCH (09:03)
[2019-12-14] MEDS: INSULIN LISPRO 300 UNITS/3 ML VIAL. SQ SCH ×3 (09:05→17:00)
--- NOTE | 2019-12-14 09:52 | PN ---
DATE: SUBJECTIVE: The patient denies any new medical or neurological complaints. He eats and drinks well. He denies headaches or visual disturbances. He feels stronger. OBJECTIVE: GENERAL: Well-developed, well-nourished male, not in acute distress. VITAL SIGNS: Blood pressure 173/84, respiratory rate 17, pulse is 52, oxygen saturation is 96% on room air. HEENT: Normocephalic, atraumatic, otherwise unremarkable. NECK: Supple. Negative for carotid bruit, lymphadenopathy or thyromegaly. LUNGS: Clear to A and P. CARDIOVASCULAR: Regular rate and rhythm, normal S1, S2. ABDOMEN: Soft. Bowel sounds positive. EXTREMITIES: Negative for cyanosis, clubbing or pitting edema. NEUROLOGICAL EXAM: Mental Status: The patient is alert and oriented x 2. The speech is fluent. There is no language dysfunction. However, the patient is still having some difficulty finding words. Cranial nerves are intact. Motor examination revealed no focal muscle bulk was seen. The strength is 4/5 in the right upper and lower extremities. The strength also was 5/5 throughout. Sensory examination revealed normal pinprick and light touch senses throughout. Deep tendon reflexes were symmetric and hypoactive with absent Achilles responses bilaterally. Gait not tested. IMPRESSION: 1. Status post acute stroke, presented with right hemiparesis and expressive aphasia -- improved. 2. Multiple medical problems include diabetes mellitus, hypertension, positive HIV. RECOMMENDATIONS: Continue with current stroke rehabilitation and current management. The patient has been making slowly, but good progress. We will continue with current management including aspirin 325 mg p.o. daily, PT/OT and speech therapy. M Maddie LEWIS MD DR: HERMAN/ferdinand JOB#: [id number] / [id number]
[2019-12-14 11:27] VITALS: BP 176/100
[2019-12-14 15:00] VITALS: BP 146/93
--- NOTE | 2019-12-14 18:27 | PN ---
DATE: 12/14/2019 SUBJECTIVE: The patient is resting slightly propped up in bed, in no apparent respiratory distress. He is awake, alert. He seemed to be doing much better today with his right upper extremity. He is able to hold cups and drink. He is still very weak and unsteady on his gait. PHYSICAL EXAMINATION: GENERAL: When I examined him this afternoon, he looked well and was clearly in no apparent respiratory distress. No pallor, jaundice, cyanosis or thyromegaly. No jugular venous distention. No limb edema. VITAL SIGNS: Her heart rate was 79, blood pressure was 176/100, temperature was 98.2, respiratory rate was 18, and oxygen saturation was 96%. HEAD, EYES, EARS, NOSE, AND THROAT: Showed normocephalic, atraumatic. NECK: Supple. HEART: Showed normal first and second heart sounds. No gallop or murmur. CHEST: Clear to auscultation. No crepitation or rhonchi. ABDOMEN: Distended, soft, nontender. NEUROLOGIC: He is awake, alert. He definitely has right-sided hemiplegia and cerebellar ataxia, very unsteady on his feet. LABORATORY DATA: Showed his white cell count was 5600, hemoglobin 15, hematocrit 45, MCV 97, and platelet count of 187,000. His chemistry showed a serum sodium 139, potassium 3.3, chloride 103, bicarbonate 28, anion gap of 8, BUN 11, creatinine 1, estimated GFR was 73 mL per minute. His glucose was ____ and calcium was 8.7. ASSESSMENT: Acute stroke, presenting with right hemiparesis and expressive aphasia that has improved with multiple medical problems including type 2 diabetes, hypertension, positive for human immunodeficiency virus. PLAN: To continue with rehabilitation. Continue to monitor his blood sugar and adjust the insulin as needed and continue with aspirin at 325 mg once a day, awaiting approval by insurance to transfer him to [facility]. RAFAEL SMALLWOOD MD DR: MU/ferdinand JOB#: [id number] / [id number]
[2019-12-14 19:35] VITALS: BP 159/83
[2019-12-14] MEDS: diphenhydrAMINE HCL 25 MG CAPSULE PO SCH (20:31)
[2019-12-14] MEDS: POTASSIUM CHLORIDE 20 MEQ TABLET.ER. PO SCH (20:31)
[2019-12-14] MEDS: ATORVASTATIN CALCIUM 20 MG TABLET PO SCH (20:31)
[2019-12-14] MEDS: ENOXAPARIN 40 MG/0.4 ML SYRINGE. SQ SCH (20:32)
[2019-12-14] MEDS: [UNRECOGNIZED DRUG - OTHER] PO SCH (20:32)
[2019-12-14] MEDS ORDERED: INSULIN GLARGINE SYRINGE. SQ SCH (21:00)
[2019-12-14 23:15] VITALS: BP 131/87
[2019-12-15 01:07] LABS: HEMOGLOBIN A1C 10.9 % (4.8-5.6)
[2019-12-15 05:45] VITALS: BP 166/88
[2019-12-15] MEDS: INSULIN LISPRO 300 UNITS/3 ML VIAL. SQ SCH ×3 (08:00→17:00)
[2019-12-15] MEDS: amLODIPine BESYLATE 10 MG TABLET PO SCH (08:20)
[2019-12-15] MEDS: ASPIRIN 325 MG TABLET PO SCH (08:21)
[2019-12-15] MEDS: LISINOPRIL 20 MG TABLET PO SCH (08:21)
[2019-12-15] MEDS: POTASSIUM CHLORIDE 20 MEQ TABLET.ER. PO SCH ×2 (08:22→20:26)
--- NOTE | 2019-12-15 12:04 | PN ---
DATE: 12/15/2019 SUBJECTIVE: The patient denies any new medical or neurological complaints. OBJECTIVE: GENERAL: Well-developed, well-nourished male, not in acute distress. VITAL SIGNS: Blood pressure 151/101, respiratory rate 14, pulse is 68, temperature 97.7, oxygen saturation 94% on room air. HEENT: Normocephalic, atraumatic, otherwise unremarkable. NECK: Supple. Negative for carotid bruit, lymphadenopathy or thyromegaly. LUNGS: Clear to A and P. CARDIOVASCULAR: Regular rate and rhythm, normal S1, S2. There is no S3, S4 or murmur. ABDOMEN: Soft. Bowel sounds positive. EXTREMITIES: Negative for cyanosis, clubbing or pitting edema. NEUROLOGICAL EXAMINATION: Mental Status: The patient is alert and oriented x 3. The speech is more fluent. There is no language dysfunction. Memory, judgment, and abstracting thinking are fair. The patient denies hallucination or delusion. Cranial nerves are intact. No focal motor or sensory deficits. The strength is +4/5 in the right upper extremity, otherwise unremarkable. Deep tendon reflexes were symmetric and hypoactive with absent Achilles responses. Gait: The stance is more steady. IMPRESSION: 1. Status post acute stroke, presented with right hemiparesis -- improved. 2. Expressive aphasia, likely secondary to stroke -- improved. 3. Multiple medical problems include diabetes mellitus and hypertension. His current blood sugar is 137. RECOMMENDATIONS: We will continue with current management and medication with stroke rehabilitation. The patient is making good and fast progress within the last 2 days. M Maddie LEWIS MD DR: HERMAN/ferdinand JOB#: [id number] / [id number]
[2019-12-15 12:45] VITALS: BP 126/84
--- NOTE | 2019-12-15 14:28 | PN ---
DATE: 12/15/2019 SUBJECTIVE: The patient is resting, slightly propped up in bed, in no apparent distress. He is awake, alert. Nursing staff stated that he required only 1 physical therapist to assist and out of the bed and he walked with a walker with a gait belt. He fed himself and he generally seemed to be slowly getting better. We are still waiting for the approval by the insurance company to transfer him to [facility]. PHYSICAL EXAMINATION: GENERAL: When I examined him today, he looked well and was clearly in no apparent respiratory distress. No pallor, jaundice, cyanosis or thyromegaly. No jugular venous distention. No lower limb edema. VITAL SIGNS: His heart rate was 70, blood pressure was 126/84, temperature 97.6, respiratory rate was 23, and oxygen saturation was 96% on room air. HEAD, EYES, EARS, NOSE, THROAT: Showed normocephalic, atraumatic. NECK: Supple. HEART: Showed normal first and second heart sounds. No gallop or murmur. CHEST: Clear to auscultation. No crepitation or rhonchi. ABDOMEN: Distended, soft, nontender. NEUROLOGIC: He was awake, alert, responding appropriately, continued to have right-sided hemiparesis. His intake over the last 24 hours was 1070, output was 400. LABORATORY DATA: His blood sugar seems to be reasonably controlled. His most recent BUN was 11, creatinine 1. Potassium was low, 3.3. His hemoglobin 15.7, hematocrit 45.8 with normal white cell count and platelet. ASSESSMENT: 1. Acute stroke presenting with right-sided hemiparesis and expressive aphasia that has improved. 2. He has multiple other medical problems including: A. Type 2 diabetes mellitus. 3. Hypertension. 4. The patient is positive for human immunodeficiency virus and antiretroviral medication for the last 15 years. PLAN: To continue with rehabilitation process. Continue to monitor his blood sugar and adjust insulin as needed. The patient will be transferred to [facility] as soon as approval is obtained. RAFAEL SMALLWOOD MD DR: MU/ferdinand JOB#: [id number] / [id number]
[2019-12-15 15:00] VITALS: BP 150/87
[2019-12-15 20:14] VITALS: BP 164/84
[2019-12-15] MEDS: diphenhydrAMINE HCL 25 MG CAPSULE PO SCH (20:25)
[2019-12-15] MEDS: [UNRECOGNIZED DRUG - OTHER] PO SCH (20:26)
[2019-12-15] MEDS: ENOXAPARIN 40 MG/0.4 ML SYRINGE. SQ SCH (20:26)
[2019-12-15] MEDS: ATORVASTATIN CALCIUM 20 MG TABLET PO SCH (20:26)
[2019-12-15] MEDS: INSULIN GLARGINE SYRINGE. SQ SCH (20:40)
[2019-12-16 06:27] VITALS: BP 161/102
[2019-12-16 07:20] LABS: ALBUMIN/GLOBULIN RATIO 0.8 (1.0-1.7); CALCIUM 8.5 mg/dL (8.5-10.1); CREATININE 1.1 mg/dL (0.7-1.3); GFR 65.4; POTASSIUM 4.2 mmol/L (3.5-5.1); TOTAL BILIRUBIN 0.4 mg/dL (0.2-1.0); TOTAL PROTEIN 6.8 g/dL (6.4-8.2)
[2019-12-16] MEDS: ASPIRIN 325 MG TABLET PO SCH (08:01)
[2019-12-16] MEDS: POTASSIUM CHLORIDE 20 MEQ TABLET.ER. PO SCH ×2 (08:01→20:39)
[2019-12-16] MEDS: ATORVASTATIN CALCIUM 20 MG TABLET PO SCH (08:01)
[2019-12-16] MEDS: LISINOPRIL 20 MG TABLET PO SCH (08:02)
[2019-12-16] MEDS: amLODIPine BESYLATE 10 MG TABLET PO SCH (08:02)
[2019-12-16 08:47] VITALS: BP 114/79
[2019-12-16] MEDS: INSULIN LISPRO 300 UNITS/3 ML VIAL. SQ SCH ×3 (09:00→16:55)
[2019-12-16 11:10] VITALS: BP 138/87
--- NOTE | 2019-12-16 11:53 | PN ---
DATE: 12/16/2019 SUBJECTIVE: The patient denies any new medical or neurological complaints. He feels more stronger in the right upper and lower extremities and the speech is more fluent. OBJECTIVE: GENERAL: Well-developed, well-nourished male, not in acute distress. VITAL SIGNS: Blood pressure 138/87, respiratory rate 19, pulse is 58, temperature 96.7, oxygen saturation 97% on room air. HEENT: Normocephalic, atraumatic, otherwise unremarkable. NECK: Supple. Negative for carotid bruit, lymphadenopathy or thyromegaly. LUNGS: Clear to A and P. CARDIOVASCULAR: Regular rate and rhythm, normal S1, S2. There is no S3, S4 or murmur. ABDOMEN: Soft. Bowel sounds positive. EXTREMITIES: Negative for cyanosis, clubbing or edema. NEUROLOGICAL EXAMINATION: Mental status: The patient is alert and oriented x 3. Speech is more fluent. There is no language dysfunction. Memory, judgment, and abstract thinking are normal. The patient denies hallucination or delusion. Cranial nerves are intact. No focal motor or sensory deficit. Deep tendon reflexes were symmetric and hypoactive with absent Achilles responses. Gait: The stance is more steady. LABORATORY DATA: Chemistry reveals sodium 141, potassium 4.2, chloride 106, CO2 27, BUN 15, creatinine 1.1 and glucose 190. IMPRESSION: 1. Status post left middle cerebral artery resulted in right hemiparesis and expressive aphasia -- improved. 2. Hypertension and diabetes mellitus. RECOMMENDATIONS: Continue with current management and stroke rehabilitation. M Maddie LEWIS MD DR: HERMAN/ferdinand JOB#: [id number] / [id number]
--- NOTE | 2019-12-16 12:45 | PN ---
DATE: 12/16/2019 SUBJECTIVE: The patient is a 74-year-old male patient who was admitted with new onset right side weakness. He is actually improving dramatically. He is now able to walk and he was evaluated by the neurologist and he was able to feed himself and is able to get out of the bed and walked with a walker with a gait belt. When I examined him this morning, he was sitting in his recliner comfortably, in no apparent distress. He was assisted by the nursing staff from out of the bed. PHYSICAL EXAMINATON: VITAL SIGNS: His heart rate was 58, blood pressure was 138/87, temperature 96.2, respiratory rate was 19 and oxygen saturation was 97%. HEAD, EYES, EARS, NOSE, AND THROAT: Showed normocephalic, atraumatic. NECK: Supple. HEART: Showed normal first and second sounds. No gallop, rub or murmur. CHEST: Showed central trachea, equal bilateral expansion, air entry, vesicular sounds. No crepitation or rhonchi. ABDOMEN: Distended, soft, nontender. NEUROLOGIC: He is awake, alert, responding appropriately. All cranial nerves are intact. He continued to have mild right sided hemiparesis. His intake was 1070, output was 400. LABORATORY DATA: As of this morning, his serum sodium 141, potassium 4.2, chloride 106, bicarbonate 27, anion gap of 8, BUN 15, creatinine 1.1, estimated GFR was 65 mL per minute, his glucose 175, calcium was 8.5. Total bilirubin, AST, ALT, alkaline phosphatase were normal. Total protein was 6.8, albumin 3. ASSESSMENT: 1. Acute stroke, presenting with right sided hemiparesis and expressive aphasia, has improved. 2. He has old left cerebellar hemispheric stroke. 3. He has multiple other medical problems including: A. Type 2 diabetes mellitus that seems to be much better controlled. B. Hypertension. C. Reports that the patient is positive for human immunodeficiency virus and he is on antiretroviral medication for the last 15 years. PLAN: To continue with rehabilitation. Continue to monitor his blood sugar and adjust insulin as needed. If the insurance refused to approve the admission to [facility], we might have to consider [facility] facility versus home with home health. RAFAEL SMALLWOOD MD DR: MU/ferdinand JOB#: [id number] / [id number]
[2019-12-16 14:59] VITALS: BP 138/60
[2019-12-16] MEDS: ENOXAPARIN 40 MG/0.4 ML SYRINGE. SQ SCH (20:38)
[2019-12-16] MEDS: [UNRECOGNIZED DRUG - OTHER] PO SCH (20:38)
[2019-12-16] MEDS: diphenhydrAMINE HCL 25 MG CAPSULE PO SCH (20:39)
[2019-12-16 20:40] VITALS: BP 164/84
[2019-12-16] MEDS: INSULIN GLARGINE SYRINGE. SQ SCH (20:47)
[2019-12-17 07:00] VITALS: BP 149/81
[2019-12-17] MEDS: LISINOPRIL 20 MG TABLET PO SCH (08:48)
[2019-12-17] MEDS: POTASSIUM CHLORIDE 20 MEQ TABLET.ER. PO SCH (08:48)
[2019-12-17] MEDS: ASPIRIN 325 MG TABLET PO SCH (08:49)
[2019-12-17] MEDS: amLODIPine BESYLATE 10 MG TABLET PO SCH (08:49)
[2019-12-17] MEDS: INSULIN LISPRO 300 UNITS/3 ML VIAL. SQ SCH ×3 (09:06→17:00)
[2019-12-17 11:00] VITALS: BP 132/84
[2019-12-17 15:00] VITALS: BP 139/78
--- NOTE | 2019-12-17 15:16 | PN ---
DATE: 12/17/2019 SUBJECTIVE: The patient denies any new medical or neurological complaints. OBJECTIVE: GENERAL: Well-developed, well-nourished male, not in acute distress. VITAL SIGNS: Blood pressure 149/81, respiratory rate 17, pulse is 54, oxygen saturation 96% on room air. HEENT: Normocephalic, atraumatic, otherwise unremarkable. NECK: Supple. Negative for carotid bruit, lymphadenopathy or thyromegaly. LUNGS: Clear to A and P. CARDIOVASCULAR: Regular rate and rhythm, normal S1, S2. There is no S3, S4 or murmur. ABDOMEN: Soft. Bowel sounds positive. EXTREMITIES: Negative for cyanosis, clubbing or edema. NEUROLOGICAL: Mental Status: The patient is alert and oriented x 3. Speech is more fluent. There is no language dysfunction. Memory, judgment, and abstract thinking are fine. The patient denies hallucination or delusion. Cranial nerves are intact. No focal motor or sensory deficit. Hearing is intact bilaterally. The palate is elevated symmetrically. Sternocleidomastoid muscles are powerful bilaterally. The patient shrugs his shoulders symmetrically, protrudes his tongue in the midline without fasciculation or atrophy. MOTOR: No focal muscle bulk was seen. The tone is normal. The strength is 4/5 in the right upper and lower extremities. Sensory examination revealed normal pinprick, light touch, vibratory and position senses. Deep tendon reflexes were asymmetric and hypoactive with absent Achilles responses. Gait: The stance is more steady. IMPRESSION: 1. Status post right middle cerebral artery acute infarct resulted in right hemiparesis and expressive aphasia -- improved over the last few days. 2. Multiple medical problems include hypertension and diabetes mellitus. RECOMMENDATIONS: Continue with current medical care and stroke rehabilitation. The patient is making a good progress. M Maddie LEWIS MD DR: HERMAN/ferdinand JOB#: [id number] / [id number]
[2019-12-17] MEDS ORDERED: ENOXAPARIN 40 MG/0.4 ML SYRINGE. SQ SCH (17:00)
--- NOTE | 2019-12-17 18:41 | DS ---
DATE OF DISCHARGE: 12/17/2019 HOSPITAL COURSE: 1. The patient is a 74-year-old male patient who was admitted with right sided hemiplegia and expressive aphasia that has improved. He has also a left cerebellar infarct. 2. Hypertension. 3. Type 2 diabetes mellitus. 4. Positive for HIV as the patient continued to have weakness in his right side and requires more aggressive physical therapy. A decision was made to transfer him to [facility] to continue rehabilitation process there. PHYSICAL EXAMINATION: GENERAL: When I saw him today, he was sitting at the edge of the bed comfortably in no apparent distress. No pallor, jaundice, cyanosis or thyromegaly. No jugular venous distention. No limb edema. VITAL SIGNS: Her heart rate was 55, blood pressure was 132/84, temperature 97.6, respiratory rate was 18 and oxygen saturation was 95% on room air. HEAD, EYES, EARS, NOSE AND THROAT: Showed normocephalic, atraumatic. NECK: Supple. HEART: Showed normal first and second heart sounds. No gallop or murmur. CHEST: Clear to auscultation. No crepitation or rhonchi. ABDOMEN: Distended, soft, nontender. NEUROLOGIC: He is awake, alert. All his cranial nerves are intact. He definitely has right-sided hemiparesis. His intake over the last 24 hours was 570, output was 620. LABORATORY DATA: Showed a white cell count 5600, hemoglobin 15, hematocrit 45, MCV 97 and platelet count of 187,000. His blood sugar seems to be much better controlled. As of yesterday, his serum sodium was 141, potassium 4.2, chloride 106, bicarbonate 27, anion gap of 8, BUN 15, creatinine 1.1, estimated GFR was 65 mL per minute, his glucose 175, calcium was 8.5. Total bilirubin, AST, ALT, alkaline phosphatase were normal. Total protein was 6.8, albumin 3. DISCHARGE MEDICATIONS: He was transferred to [facility] to continue on Lantus insulin 20 units at bedtime, potassium chloride 20 mEq twice a day, Humalog insulin as insulin sliding scale before meals, lisinopril 40 mg once a day, amlodipine 10 mg once a day, atorvastatin 20 mg at bedtime. He is on Biktarvy 1 tablet at bedtime for his human immunodeficiency virus treatment, diphenhydramine 50 mg at bedtime, Tylenol 650 mg every 6 hours, aspirin 325 mg once a day, Lovenox 40 mg subcutaneously once a day, ondansetron 4 mg every 8 hours as needed. FINAL DISCHARGE DIAGNOSES: 1. Acute stroke, presenting with right sided hemiparesis and expressive aphasia, has improved. He has old left cerebellar hemispheric stroke. He has multiple other medical problems including: A. Type 2 diabetes mellitus, seems to be much better controlled. B. Hypertension. C. The patient is positive for human immunodeficiency virus and he has been on antiretroviral medication for the last 15 years. RAFAEL SMALLWOOD MD DR: MU/ferdinand JOB#: [id number] / [id number]
[2019-12-17] MEDS ORDERED: INSULIN GLARGINE SYRINGE. SQ SCH (21:00)
[2019-12-17] MEDS ORDERED: ATORVASTATIN CALCIUM 20 MG TABLET PO SCH (21:00)
[2019-12-18] MEDS ORDERED: INSULIN LISPRO 300 UNITS/3 ML VIAL. SQ SCH (07:30)
== END 2019-12-17 17:59 | DRG 65 ==
LOC: ER 12:20 → ICU 15:50
PROVIDERS: ADMIT Internal Medicine; ATTEND Internal Medicine
DX: I63.9 Cerebral infarction, unspecified (principal); I69.351 Hemiplegia and hemiparesis following cerebral infarction affecting right dominant side; Z21 Asymptomatic human immunodeficiency virus [HIV] infection status; E78.5 Hyperlipidemia, unspecified; H91.90 Unspecified hearing loss, unspecified ear; I10 Essential (primary) hypertension; N40.0 Benign prostatic hyperplasia without lower urinary tract symptoms; R13.10 Dysphagia, unspecified; Z82.49 Family history of ischemic heart disease and other diseases of the circulatory system; Z91.14 Patient's other noncompliance with medication regimen; Z88.0 Allergy status to penicillin; Z79.899 Other long term (current) drug therapy; I69.320 Aphasia following cerebral infarction; E11.65 Type 2 diabetes mellitus with hyperglycemia; Z79.4 Long term (current) use of insulin
CPT/HCPCS: 36415; 70450; 70496; 70498; 71045; 80048; 80053; 80061; 81001; 82947; 83036; 83735; 84484; 85025; 93005; J1650; J1815; Q0163; Q9967; 92610; 97110; 97530; 99291-25

== ENCOUNTER 2021-03-05 11:36 | Emergency (ER) | payer MEDICARE, MEDICAID ==
[~2021-03-05] VITALS: Ht 175.3 cm; Wt 86.2 kg
[~2021-03-05 11:36] MED LIST changes: +AMLO-187 PO; +BICT1TAB PO; +DIPH25CA58 PO; +IBUP800T19 PO; +LISI40TA6 PO
[2021-03-05 12:11] LABS: BASO % 1 % (0-3); CALCIUM 8.3 mg/dL (8.5-10.1); EOS # 0.2 x10^3/uL (0.0-0.7); EOS % 4 % (0-3); GFR 72.8; HEMATOCRIT 43.7 % (39.0-53.0); HEMOGLOBIN 14.7 g/dL (13.0-17.5); LYMPH # 0.9 x10^3/uL (1.0-4.8); LYMPH % 17 % (24-48); MEAN CORPUSCULAR HEMOGLOBIN 33 pg (25-35); MEAN CORPUSCULAR HGB CONC 34 g/dL (31-37); MEAN CORPUSCULAR VOLUME 98 fL (79-100); MONO # 0.4 x10^3/uL (0.0-1.1); MONO % 8 % (0-9); NEUT % 71 % (31-73); PLATELET COUNT 184 x10^3/uL (140-400); POTASSIUM 3.5 mmol/L (3.5-5.1); RED BLOOD COUNT 4.46 x10^6/uL (4.30-5.70); RED CELL DISTRIBUTION WIDTH 13.4 % (11.5-14.5); WHITE BLOOD COUNT 5.6 x10^3/uL (4.0-11.0)
[2021-03-05] MEDS ORDERED: CONTRAST GIVEN. MC PRN (12:15)
[2021-03-05] MEDS ORDERED: IOHEXOL 350 MG/ML 100 ML VIAL. IV ONE (12:15)
[2021-03-05 12:17] LABS: ALBUMIN 2.9 g/dL (3.4-5.0); ALBUMIN/GLOBULIN RATIO 0.9 (1.0-1.7); MAGNESIUM 1.9 mg/dL (1.8-2.4); TOTAL BILIRUBIN 0.2 mg/dL (0.2-1.0); TOTAL PROTEIN 6.3 g/dL (6.4-8.2)
--- NOTE | 2021-03-05 12:49 | RAD ---
CT STROKE HEAD W/O History: Slurred speech. Comparison: CT head 12/12/2019 Technique: Noncontrast CT imaging was performed of the head. Findings: No intracranial hemorrhage. No mass effect. No hydrocephalus. No evidence of acute territorial infar ction. Incidental cavum septum pellucidum. Diffuse hypodensity the periventricular and deep white mat ter consistent with chronic microvascular ischemic changes. Imaged orbits are unremarkable. Imaged paranasal sinuses and mastoid air cells are clear. The scalp a nd calvarium are unremarkable. Impression: 1. No acute intracranial abnormality. ----- Exposure: One or more of the following individualized dose reduction techniques were utilized for thi s examination: 1. Automated exposure control 2. Adjustment of the mA and/or kV according to patient size 3. Use of iterative reconstruction technique. Electronically signed by: Janusz Avelar MD (03/05/2021 12:46 PM) [id number]
--- NOTE | 2021-03-05 13:03 | RAD ---
CTA HEAD AND NECK W/WO CONTRAST History: Stroke workup. Slurred speech. Technique: After bolus of intravenous contrast, volumetric CT data acquisition was acquired of the he ad and neck. Multiplanar reconstruction images to include MIP and 3-D reconstruction images are submi tted. Any determination of stenosis is based on NASCET criteria. Comparison: CT head 12/12/2019, 03/05/2021 Findings: Angiogram neck: Aortic arch: Normal caliber three-vessel arch with mild calcification. Common carotid arteries: No stenosis, occlusion or dissection. Internal carotid arteries: No stenosis, occlusion or dissection. Mild atherosclerotic calcification o f the proximal ICA bilaterally. External carotid arteries: Patent Vertebral arteries: No stenosis, occlusion or dissection. Angiogram head: ICA: No stenosis, occlusion or aneurysm. MCA: No stenosis, occlusion or aneurysm. MERA: No stenosis, occlusion or aneurysm. GAS PUMPING STATION OPERATOR: No stenosis, occlusion or aneurysm. origin of the left GAS PUMPING STATION OPERATOR. Basilar artery: No stenosis, occlusion or aneurysm. Distal vertebral arteries: No stenosis, occlusion or aneurysm. Other: Imaged lung apices are unremarkable. Soft tissues appear normal. No pathologic osseous lesions. Degenerative changes of the cervical spine with multilevel disc and fa cet disease. Incidental partial occlusion of the left external auditory canal, similar to 2019 comparison, likely impacted cerumen. Impression: 1. No arterial stenosis or occlusion within the head or neck. CT head and CTA head and neck findings discussed with Dr. Rosado at 03/05/2021 12:5\04 PM. FOR INTERNAL CODING PURPOSES RESULT CODE: (C) Exposure: One or more of the following individualized dose reduction techniques were utilized for thi s examination: 1. Automated exposure control 2. Adjustment of the mA and/or kV according to patient size 3. Use of iterative reconstruction technique. Electronically signed by: Janusz Avelar MD (03/05/2021 1:00 PM) [id number]
[2021-03-05 13:15] VITALS: BP 152/89
--- NOTE | 2021-03-05 13:25 | PHYS DOC ---
Past History Past Medical History: Diabetes, HIV, Hypertension Past Surgical History: No Surgical History Alcohol Use: None Drug Use: None Adult General Chief Complaint Chief Complaint: WEAKNESS/GENERALIZED HPI HPI Patient is a 75-year-old male with a past medical history significant for insulin-dependent diabetes, hypertension, HIV and stroke a year and a half ago who presents to the emergency department with a chief complaint of severe fatigue and family concerned that he had another stroke. States that at baseline he has significant deficits and is wheelchair-bound because of his last stroke. Family states he just seemed really tired but denies any worsening confusion, slurred speech or motor changes from baseline. Patient states that he just feels really weak all over. Denies headache, chest pain, shortness of breath, abdominal pain, nausea, vomiting, diarrhea. Denies any recent fevers, traumas or travels. States he has been taking all his medications as prescribed. States he has been eating and drinking normally for him. States he is making urine and stool normally for him. Review of Systems Review of Systems Review of systems otherwise unremarkable except noted in HPI Current Medications Current Medications Current Medications Medications (Trade) Dose Ordered Sig/Edith Start Time Stop Time Status Last Admin Dose Admin Info (Do NOT chart on this entry -- for MONITORING) 1 each PRN DAILY PRN 03/05/21 12:15 03/07/21 12:14 Iohexol (Omnipaque 350 Mg/ml) 100 ml 1X ONCE 03/05/21 12:15 03/05/21 12:16 DC 03/05/21 12:23 100 ML Allergies Allergies Allergies Coded Allergies Type Severity Reaction Last Updated Verified Penicillins Allergy Unknown 12/12/19 Yes Physical Exam Physical Exam Constitutional: Well developed, well nourished, no acute distress, non-toxic appearance. [] HENT: Normocephalic, atraumatic, bilateral external ears normal, oropharynx moist, no oral exudates, nose normal. [] Eyes: PERRLA, EOMI, conjunctiva normal, no discharge. [] Neck: Normal range of motion, no tenderness, supple, no stridor. [] Cardiovascular:Heart rate regular rhythm, no murmur [] Lungs & Thorax: Bilateral breath sounds clear to auscultation [] Abdomen: soft, no tenderness, no masses, no pulsatile masses. [] Skin: Warm, dry, no erythema, no rash. [] Back: No tenderness, no CVA tenderness. [] Extremities: No tenderness, no cyanosis, no clubbing, ROM intact, no edema. [] Neurologic: Alert and oriented to baseline, motor function at baseline, sensory function at baseline, cranial nerves at baseline, no new focal deficits noted. NIH is 0 [] Psychologic: Affect normal, judgement normal, mood normal. [] Current Patient Data Vital Signs Vital Signs Date Time Temp Pulse Resp B/P (MAP) Pulse Ox O2 Delivery O2 Flow Rate FiO2 03/05/21 11:43 49 16 146/76 (99) 99 Room Air Lab Results Laboratory Tests Test 03/05/21 11:41 03/05/21 11:52 White Blood Count 5.6 x10^3/uL (4.0-11.0) Red Blood Count 4.46 x10^6/uL (4.30-5.70) Hemoglobin 14.7 g/dL (13.0-17.5) Hematocrit 43.7 % (39.0-53.0) Mean Corpuscular Volume 98 fL (79-100) Mean Corpuscular Hemoglobin 33 pg (25-35) Mean Corpuscular Hemoglobin Concent 34 g/dL (31-37) Red Cell Distribution Width 13.4 % (11.5-14.5) Platelet Count 184 x10^3/uL (140-400) Neutrophils (%) (Auto) 71 % (31-73) Lymphocytes (%) (Auto) 17 % (24-48) L Monocytes (%) (Auto) 8 % (0-9) Eosinophils (%) (Auto) 4 % (0-3) H Basophils (%) (Auto) 1 % (0-3) Neutrophils # (Auto) 4.0 x10^3uL (1.8-7.7) Lymphocytes # (Auto) 0.9 x10^3/uL (1.0-4.8) L Monocytes # (Auto) 0.4 x10^3/uL (0.0-1.1) Eosinophils # (Auto) 0.2 x10^3/uL (0.0-0.7) Basophils # (Auto) 0.0 x10^3/uL (0.0-0.2) Sodium Level 136 mmol/L (136-145) Potassium Level 3.5 mmol/L (3.5-5.1) Chloride Level 102 mmol/L (98-107) Carbon Dioxide Level 29 mmol/L (21-32) Anion Gap 5 (6-14) L Blood Urea Nitrogen 13 mg/dL (8-26) Creatinine 1.0 mg/dL (0.7-1.3) Estimated GFR (Cockcroft-Gault) 72.8 BUN/Creatinine Ratio 13 (6-20) Glucose Level 323 mg/dL (70-99) H Calcium Level 8.3 mg/dL (8.5-10.1) L Magnesium Level 1.9 mg/dL (1.8-2.4) Total Bilirubin 0.2 mg/dL (0.2-1.0) Aspartate Amino Transferase (AST) 18 U/L (15-37) Alanine Aminotransferase (ALT) 27 U/L (16-63) Alkaline Phosphatase 72 U/L (46-116) Troponin I High Sensitivity 239 ng/L (4-75) H Total Protein 6.3 g/dL (6.4-8.2) L Albumin 2.9 g/dL (3.4-5.0) L Albumin/Globulin Ratio 0.9 (1.0-1.7) L Glucose (Fingerstick) 329 mg/dL (70-99) H EKG EKG [] Radiology/Procedures Radiology/Procedures [] Heart Score C/O Chest Pain: No Risk Factors: Risk Factors: DM, Current or recent (<one month) smoker, HTN, HLP, family history of CAD, obesity. Risk Scores: Risk Factors: DM, Current or recent (<one month) smoker, HTN, HLP, family his tory of CAD, obesity. Course & Med Decision Making Course & Med Decision Making Patient is a 75-year-old male who presents with a chief complaint of profound fatigue Vital signs notable for bradycardia and hypertension. Physical exam noted above. Initial EKG with no STEMI however abnormal with some T wave inversions in leads I and aVL and abnormal T waves and V4 with probable mild ST elevation. Troponin elevated to 239. Given aspirin. Stroke CT and CTA of the head and neck with no new findings. Given patient's elevated troponin and abnormal EKG with history of cardiovascular disease patient was started on heparin. [] Dragon Disclaimer Dragon Disclaimer This electronic medical record was generated, in whole or in part, using a voice recognition dictation system. Departure Departure: Impression: Primary Impression: NSTEMI (non-ST elevated myocardial infarction) Disposition: 02 SHORT TERM HOSPITAL Admitting Physician: Karl Curran Condition: STABLE Referrals: RACHEAL SHERMAN MD (PCP) XUAN PERSAUD MD Mar 05, 2021 13:25
[2021-03-05] MEDS ORDERED: HEPARIN for IV BOLUS 10,000 UNIT/10 ML VIAL. IV PRN (13:30)
[2021-03-05] MEDS ORDERED: HEPARIN 25,000UTS/250ML PREMIX 250 ML IV PRN (13:30)
[2021-03-05] MEDS ORDERED: HEPARIN for IV BOLUS 10,000 UNIT/10 ML VIAL. IV ONE (13:30)
[2021-03-05] MEDS ORDERED: ASPIRIN CHEWABLE 81 MG TABLET. PO ONE (13:30)
--- NOTE | 2021-03-05 20:18 | EKG ---
[address] [address] Test Date: 2021-03-05 Test Time: 11:45:41 Pat Name: DILLAN MAGAÑA Department: Room: Gender: M Assembly Hand: WALTER : 1945 Requested By: XUAN PERSAUD Order Number: [id number] Reading MD: Brian Barrios Measurements Intervals [place] Rate: 52 P: 34 OR: 158 QRS: -47 QRSD: 118 T: 121 QT: 432 QTc: 404 Interpretive Statements SINUS RHYTHM ABNORMAL LEFT AXIS DEVIATION LEFT ANTERIOR FASCICULAR BLOCK LVH WITH REPOLARIZATION ABNORMALITY QRS(T) CONTOUR ABNORMALITY CONSIDER ANTEROSEPTAL MYOCARDIAL DAMAGE ABNORMAL ECG Electronically Signed On 03-09-2021 9:53:37 HARNESS MENDER by Brian Barrios
--- NOTE | 2021-03-05 20:20 | EKG ---
[address] [address] Test Date: 2021-03-05 Test Time: 13:18:31 Pat Name: DILLAN MAGAÑA Department: Room: Gender: M Psychometrist: : 1945 Requested By: XUAN PERSAUD Order Number: [id number] Reading MD: Brian Barrios Measurements Intervals [place] Rate: 54 P: 25 DC: 178 QRS: -46 QRSD: 116 T: 130 QT: 438 QTc: 421 Interpretive Statements SINUS RHYTHM ABNORMAL LEFT AXIS DEVIATION LEFT ANTERIOR FASCICULAR BLOCK LVH WITH REPOLARIZATION ABNORMALITY QRS(T) CONTOUR ABNORMALITY CONSIDER ANTEROSEPTAL MYOCARDIAL DAMAGE ABNORMAL ECG RI6.02 Compared to ECG 03/05/2021 11:45:41 No significant changes Electronically Signed On 03-09-2021 9:53:07 TRAINING MGR by Brian Barrios
== END 2021-03-05 15:00 | disposition short-term general hospital (02) ==
LOC: ER 11:36
DX: I21.4 Non-ST elevation (NSTEMI) myocardial infarction (principal); E11.9 Type 2 diabetes mellitus without complications; I10 Essential (primary) hypertension; Z88.0 Allergy status to penicillin; Z20.822 Contact with and (suspected) exposure to COVID-19
CPT/HCPCS: 36415; 70450; 70496; 70498; 80053; 82803; 82947; 83735; 84443; 84484; 85025; 85379; 85610; 85730; 87426; 93005; 96365; 96375; 99285; C9803; J1644; Q9967; U0003

== ENCOUNTER 2021-04-12 04:13 | Emergency (ER) | payer MEDICARE, MEDICAID ==
[~2021-04-12] VITALS: Ht 175.3 cm; Wt 86.2 kg
[~2021-04-12 04:13] MED LIST changes: +CALCIUM CHLORIDE 1,000 MG/10 ML VIAL IV ONE; +EPINEPHrine SYRINGE 1 MG/10 ML SYRINGE. ONE; +FLUMAZENIL 0.5 MG/5 ML VIAL. IV ONE; +SODIUM BICARB ADULT 8.4% 50 MEQ/50 ML DISP.SYRIN. ONE
--- NOTE | 2021-04-12 05:07 | PHYS DOC ---
Past History Past Medical History: Diabetes, HIV, Hypertension Past Surgical History: No Surgical History Alcohol Use: None Drug Use: None Adult General Chief Complaint Chief Complaint: CPR/FULL ARREST HPI HPI Patient is a 75-year-old male with a past medical history significant for cardiovascular disease, recent [place], stroke, insulin-dependent diabetes, HIV, hypertension, and hyperlipidemia who presents from home via EMS for an initial call of shortness of breath. Per EMS they got there at approximately 3:48 AM and patient had agonal breathing with respirations around 6 and a thready pulse which he soon lost and ACLS was begun. Per EMS, patient was cyanotic at approximately 3:54 AM and ACLS was maintained for the duration until ER arrival with no pulse, and asystole on their monitor. Blood sugar greater than 400. Allergies Allergies Allergies Coded Allergies Type Severity Reaction Last Updated Verified Penicillins Allergy Unknown 12/12/19 Yes Physical Exam Physical Exam Constitutional: Well developed, well nourished, in acute distress/cardiac arrest HENT: Normocephalic, atraumatic, oropharynx moist, Eyes: Pupils 3 mm bilaterally with no reaction to light, no corneal reflex conjunctiva normal, no discharge. [] Neck: Normal range of motion, Cardiovascular: Cardiac arrest Lungs & Thorax: Respiratory arrest Abdomen: soft, Skin: Cool, dry, Back: No obvious deformities Extremities: Cool, mild cyanosis, mild bilateral pitting edema Neurologic: GCS of 3 Current Patient Data Lab Results Laboratory Tests Test 04/12/21 04:26 Glucose (Fingerstick) 456 mg/dL (70-99) H EKG EKG [] Radiology/Procedures Radiology/Procedures [] Heart Score C/O Chest Pain: N/A Risk Factors: Risk Factors: DM, Current or recent (<one month) smoker, HTN, HLP, family history of CAD, obesity. Risk Scores: Risk Factors: DM, Current or recent (<one month) smoker, HTN, HLP, family history of CAD, obesity. Course & Med Decision Making Course & Med Decision Making Patient is a 75-year-old male with multiple comorbidities arriving to the emergency department from home after call of shortness of breath and cardiac arrest with ACLS in progress and a blood sugar greater than 400. Upon arrival to the emergency department EMS had Ariel device in place for chest compressions and patient was transferred to the bed. Designated tasks included bilateral tibial IO's, cardiac pads placed on monitor, RT with Ambu bag breathing approximately 20 times a minute and 100%. After oxygenation ventilation, IV access established and pads placed to Ariel was removed and manual chest compressions begun. ACLS recommended epinephrine begun. Given patient's history of insulin-dependent diabetes and arrest, was given calcium chloride. Given 1 dose of bicarb assuming acidemia. During ACLS, patient went from asystole to possible fine V. fib. At rhythm check and possible fine V. fib patient was shocked at 200 J and chest compressions resumed. ACLS continued. After multiple rounds of epinephrine, calcium chloride and carbonate as well as rhythm/pulse checks, patient remained asystolic. ACLS was continued and open discussion between the team begun on appropriateness of continued attempts at resuscitation. All team members felt that at approximately 45 minutes after arrival that further attempts would be unsuccessful given high probability of hypoxic brain injury and low likelihood of ROSC. Patient time of noted at 4:36 AM on April 12, 2021. [] Dragon Disclaimer Dragon Disclaimer This electronic medical record was generated, in whole or in part, using a voice recognition dictation system. Departure Departure: Impression: Primary Impression: Cardiac arrest Condition: Referrals: OCTAVIO PELLETIER MD (PCP) XUAN PERSAUD MD Apr 12, 2021 05:07
== END 2021-04-12 04:36 ==
LOC: ER 04:13
DX: I46.9 Cardiac arrest, cause unspecified (principal); E11.9 Type 2 diabetes mellitus without complications; I10 Essential (primary) hypertension; E78.5 Hyperlipidemia, unspecified; I25.2 Old myocardial infarction; Z86.73 Personal history of transient ischemic attack (TIA), and cerebral infarction without residual deficits; Z88.0 Allergy status to penicillin
CPT/HCPCS: 82947; 92950; 99285; J0171; J3490